=== PATIENT | female | born 1985 | race Caucasian/White ===

== ENCOUNTER 2018-07-23 19:21 | Emergency (ER) | payer BC ==
[~2018-07-23] VITALS: Ht 162.6 cm; Wt 86.2 kg
[~2018-07-23 19:21] MED LIST: CIPR500T4 PO; METR500T21 PO; ONDA8TAB9 PO; TRAM50TA2 PO
--- NOTE | 2018-07-23 19:34 | ED Cough/URI ---
General Stated Complaint: COUGH/CONGESTION Source: patient Exam Limitations: no limitations History of Present Illness Date Seen by Provider: Jul 23, 2018 Time Seen by Provider: 19:33 Initial Comments To ER with reports of cough and nasal congestion. This began Monday with sneezing, Monday she felt generally worse and today she's had a cough. Upon awakening today she noticed her lips were blue. She has a cough productive of bloody-appearing sputum and feels short of breath. She does have mild asthma. Timing/Duration: constant, getting worse Severity/Quality: productive cough Associated Symptoms: cough, shortness of breath Allergies and Home Medications Allergies Coded Allergies: codeine (Verified Allergy, Mild, 03/19/16) Home Medications Ciprofloxacin HCl 500 Mg Tablet, 500 MG PO Q12H Prescribed by: SHAUNNA TREJO on 03/20/1617 Metronidazole 500 Mg Tablet, 500 MG PO BID Prescribed by: SHAUNNA TREJO on 03/20/1617 Ondansetron 8 Mg Tab.rapdis, 8 MG PO Q6H PRN for NAUSEA Prescribed by: SHAUNNA TREJO on 03/20/1617 Prednisone 20 Mg Tab, 40 MG PO DAILY . Prescribed by: DARIN AL on 07/23/182153 Tramadol HCl 50 Mg Tablet, 50 MG PO Q4H PRN for PAIN Prescribed by: SHAUNNA TREJO on 03/20/1617 Patient Home Medication List Home Medication List Reviewed: Yes Review of Systems Review of Systems Constitutional: see HPI EENTM: see HPI Respiratory: see HPI, phlegm, short of breath Cardiovascular: no symptoms reported Genitourinary: no symptoms reported Musculoskeletal: no symptoms reported Skin: no symptoms reported Psychiatric/Neurological: No Symptoms Reported Past Dgmzmis-Pvjoau-Fojhsw Hx Patient Social History Recent Foreign Travel: No Contact w/Someone Who Travel: No Seasonal Allergies Seasonal Allergies: No Past Medical History Reproductive Disorders: No Sexually Transmitted Disease: No HIV/AIDS: No Adverse Reaction/Blood Tranf: No Family Medical History No Pertinent Family Hx Physical Exam Vital Signs - First Documented 07/23/18 19:25 Temp 98.7 Pulse 98 Resp 22 B/P (MAP) 130/85 (100) Pulse Ox 97 O2 Delivery Room Air Capillary Refill : Height: 5'4" Weight: 184lbs. oz. 83.181822uv; BMI Method:Stated General Appearance: WD/WN, no apparent distress Eyes: Bilateral Eye Normal Inspection, Bilateral Eye PERRL, Bilateral Eye EOMI HEENT: PERRL/EOMI, normal ENT inspection Neck: non-tender Respiratory: no respiratory distress, no accessory muscle use, other (wheezing left base) Cardiovascular: regular rate, rhythm Gastrointestinal: normal bowel sounds, non tender, soft Extremities: normal range of motion, non-tender, other (no unilateral leg swelling) Neurologic/Psychiatric: alert, normal mood/affect, oriented x 3 Skin: normal color, warm/dry Progress/Results/Core Measures Suspected Sepsis SIRS Temperature: Pulse: Respiratory Rate: Laboratory Tests 07/23/18 19:50: White Blood Count 11.4H Blood Pressure / Mean: Laboratory Tests 07/23/18 19:50: Platelet Count 317 Results/Orders Lab Results Laboratory Tests Test 07/23/18 19:50 Range/Units White Blood Count 11.4 H 4.3-11.0 10^3/uL Red Blood Count 4.35 4.35-5.85 10^6/uL Hemoglobin 13.4 11.5-16.0 G/DL Hematocrit 39 35-52 % Mean Corpuscular Volume 89 80-99 FL Mean Corpuscular Hemoglobin 31 25-34 PG Mean Corpuscular Hemoglobin Concent 35 32-36 G/DL Red Cell Distribution Width 13.4 10.0-14.5 % Platelet Count 317 130-400 10^3/uL Mean Platelet Volume 10.5 H 7.4-10.4 FL Neutrophils (%) (Auto) 68 42-75 % Lymphocytes (%) (Auto) 20 12-44 % Monocytes (%) (Auto) 5 0-12 % Eosinophils (%) (Auto) 8 0-10 % Basophils (%) (Auto) 0 0-10 % Neutrophils # (Auto) 7.7 1.8-7.8 X 10^3 Lymphocytes # (Auto) 2.2 1.0-4.0 X 10^3 Monocytes # (Auto) 0.5 0.0-1.0 X 10^3 Eosinophils # (Auto) 0.9 H 0.0-0.3 10^3/uL Basophils # (Auto) 0.0 0.0-0.1 10^3/uL D-Dimer 0.55 H 0.00-0.49 UG/ML Serum Test, Qualitative NEGATIVE NEGATIVE My Orders Orders - DARIN AL RELATIONS LIAISON Albuterol/Ipra Inhalation Soln (Duoneb I (07/23/18 19:45) Svn Small Volume Nebulizer (07/23/18 19:31) Chest Pa/Lat (2 View) (07/23/18 19:31) Cbc With Automated Diff (07/23/18 19:34) Fibrin Degradation Products (07/23/18 19:34) Hcg,Qualitative Serum (07/23/18 19:34) Iv Heplock-Insert (Order) (07/23/18 19:34) Ct Angio Chest W (07/23/18 20:29) Iohexol Injection (Omnipaque 350 Mg/Ml 1 (07/23/18 21:00) Ns (Ivpb) (Sodium Chloride 0.9%) (07/23/18 21:00) Rx-Albuterol Inhaler (Rx-Proair) (07/23/18 21:26) Methylprednisolone Sod Succ (Solu-Medrol (07/23/18 21:30) Medications Given in ED Current Medications Medications Dose Ordered Sig/Shantell Route Start Time Stop Time Status Last Admin Dose Admin Albuterol/ Ipratropium 3 ml ONCE ONCE INH 07/23/18 19:45 07/23/18 19:46 DC 07/23/18 19:36 3 ML Iohexol 150 ml ONCE ONCE IV 07/23/18 21:00 07/23/18 21:23 DC 07/23/18 20:53 140 ML Methylprednisolone Sodium Succinate 125 mg ONCE ONCE IVP 07/23/18 21:30 07/23/18 21:31 DC 07/23/18 21:58 125 MG Sodium Chloride 250 ml ONCE ONCE IV 07/23/18 21:00 07/23/18 21:24 DC 07/23/18 20:54 80 ML Vital Signs/I&O 07/23/18 07/23/18 07/23/18 19:25 19:25 19:36 Temp 98.7 Pulse 98 Resp 22 B/P (MAP) 130/85 (100) Pulse Ox 97 95 O2 Delivery Room Air Room Air Room Air Capillary Refill : Diagnostic Imaging Diagonstic Imaging: Xray, CT Comments NAME: LUDMILA ESPINOSA [facility] REC#: [id number] PT STATUS: REG ER : 1985 PHYSICIAN: DARIN AL APRN ADMIT DATE: 07/23/18/ER Draft Date of Exam:07/23/18 CT ANGIO CHEST W PROCEDURE: CT angiography of the chest with contrast. TECHNIQUE: Multiple contiguous axial images were obtained through the chest after uneventful bolus administration of intravenous contrast. 2D reconstructed CTA MIP acquisitions were also performed. INDICATION: Cough, congestion, elevated d-dimer. COMPARISON: None FINDINGS: No significant filling defect within the pulmonary arteries to reflect pulmonary embolism. The heart size is unremarkable. Thoracic aorta normal in contour. Mildly prominent but non-pathologically enlarged hilar lymph nodes present. EG junction unremarkable. There is no focal lobar consolidation. There is suggestion of slight peribronchial thickening, could reflect nonspecific bronchiolitis. No significant effusion. No pneumothorax. Likely changes of hepatic steatosis. Stomach is distended with retained gastric contents likely recent meal ingestion. The visualized osseous structures demonstrate no acute findings. IMPRESSION: 1. No CTA evidence for pulmonary embolism. 2. There is slightly prominent peribronchial markings as well as prominent hilar lymphadenopathy. The findings could be reflective of underlying nonspecific bronchiolitis. No lucrecia lobar consolidation. Dictated on workstation # [id number] Dict: 07/23/182108 Trans: 07/23/18 Critical access hospital2 [facility] [id number] Interpreted by: NATHAN RUDOLPH DO Electronically signed by: Departure Impression Primary Impression: Bronchitis Disposition: 01 HOME, SELF-CARE Condition: Stable Departure-Patient Inst. Decision time for Depature: 21:46 Referrals: [facility] Primary Care Physician Patient Instructions: Acute Bronchitis, Adult (DC) Add. Discharge Instructions: 1. Return to ER for any cocerns 2. Call your doctor for an appointment to be seen for recheck this week 3. Steroids as directed. INhaler 2 puffs ever 4 hours. Scripts Prednisone (Prednisone) 20 Mg Tab 40 MG PO DAILY, #6 TAB . Prov: DARIN AL APRN 07/23/18 Work/School Note: Work Release Form Date Seen in the Emergency Department: Jul 23, 2018 Return to Work: Jul 25, 2018 DARIN AL APRN Jul 23, 2018 19:34
[2018-07-23] MEDS ORDERED: RT-ALBUTEROL/IPRATROPIUM 3 ML (DUONEB) VIAL INH ONE (19:45)
[2018-07-23 19:58] LABS: BASOPHILS % (AUTO) 0 % (0-10); EOSINOPHILS # (AUTO) 0.9 10^3/uL (0.0-0.3); EOSINOPHILS % (AUTO) 8 % (0-10); HEMATOCRIT 39 % (35-52); HEMOGLOBIN 13.4 G/DL (11.5-16.0); LYMPHOCYTES # (AUTO) 2.2 X 10^3 (1.0-4.0); LYMPHOCYTES % (AUTO) 20 % (12-44); MEAN CORPUSCULAR HEMOGLOBIN 31 PG (25-34); MEAN CORPUSCULAR HGB CONC 35 G/DL (32-36); MEAN CORPUSCULAR VOLUME 89 FL (80-99); MEAN PLATELET VOLUME 10.5 FL (7.4-10.4); MONOCYTES # (AUTO) 0.5 X 10^3 (0.0-1.0); MONOCYTES % (AUTO) 5 % (0-12); NEUTROPHILS # (AUTO) 7.7 X 10^3 (1.8-7.8); NEUTROPHILS % (AUTO) 68 % (42-75); PLATELET COUNT 317 10^3/uL (130-400); RED BLOOD COUNT 4.35 10^6/uL (4.35-5.85); RED CELL DISTRIBUTION WIDTH 13.4 % (10.0-14.5); WHITE BLOOD COUNT 11.4 10^3/uL (4.3-11.0)
--- NOTE | 2018-07-23 20:09 | Diagnostic Imaging Report ---
INDICATION: Chest tightness, cough, congestion.. TECHNIQUE: Two view chest 8:19 PM CORRELATION STUDY: None FINDINGS: The heart size, mediastinal configuration and pulmonary vasculature are within normal limits. The lungs are clear with no consolidating infiltrate. There is no significant pleural effusion or pneumothorax. Visualized osseous structures are unremarkable. IMPRESSION: 1. No radiographic evidence for acute abnormality of the chest. Dictated by: Dictated on workstation # [id number]
[2018-07-23] MEDS ORDERED: IOHEXOL 350 MG/ML 150 ML (OMNIPAQUE 350) VIAL IV ONE (21:00)
[2018-07-23] MEDS ORDERED: NS 250 ML (IVPB) BAG IV ONE (21:00)
[2018-07-23] MEDS ORDERED: RX-ALBUTEROL INHALER (PROAIR) 8 GM IH STA (21:26)
[2018-07-23] MEDS ORDERED: methylPREDNISolone 125 MG (Solu-MEDROL) VIAL IVP ONE (21:30)
--- NOTE | 2018-07-23 21:33 | Diagnostic Imaging Report ---
PROCEDURE: CT angiography of the chest with contrast. TECHNIQUE: Multiple contiguous axial images were obtained through the chest after uneventful bolus administration of intravenous contrast. 2D reconstructed CTA MIP acquisitions were also performed. INDICATION: Cough, congestion, elevated d-dimer. COMPARISON: None FINDINGS: No significant filling defect within the pulmonary arteries to reflect pulmonary embolism. The heart size is unremarkable. Thoracic aorta normal in contour. Mildly prominent but non-pathologically enlarged hilar lymph nodes present. EG junction unremarkable. There is no focal lobar consolidation. There is suggestion of slight peribronchial thickening, could reflect nonspecific bronchiolitis. No significant effusion. No pneumothorax. Likely changes of hepatic steatosis. Stomach is distended with retained gastric contents likely recent meal ingestion. The visualized osseous structures demonstrate no acute findings. IMPRESSION: 1. No CTA evidence for pulmonary embolism. 2. There is slightly prominent peribronchial markings as well as prominent hilar lymphadenopathy. The findings could be reflective of underlying nonspecific bronchiolitis. No lucrecia lobar consolidation. Dictated by: Dictated on workstation # [id number]
[2018-07-23] MEDS ORDERED: PRD20T PO ×2 (21:47→21:54)
[2018-07-23 22:04] VITALS: BP 128/86
== END 2018-07-23 22:07 | disposition home or self-care (01) ==
LOC: EDUNIT# 19:21 → ER 19:22
DX: J40 Bronchitis, not specified as acute or chronic (principal); J45.909 Unspecified asthma, uncomplicated; Z88.5 Allergy status to narcotic agent; Z79.52 Long term (current) use of systemic steroids
CPT/HCPCS: 36415; 71046; 71275; 84703; 85025; 85379; 94640

== ENCOUNTER 2019-08-22 20:07 | Emergency (ER) | payer OTHER ==
[~2019-08-22] VITALS: Ht 162.6 cm; Wt 87.1 kg
[~2019-08-22 20:07] MED LIST changes: +METR-145 PO; -METR500T21 PO; +PRD20T PO
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
[2019-08-22] MEDS ORDERED: RX-ONDANSETRON 4 MG ODT (ZOFRAN) PPK #4 PO STA (22:51)
[2019-08-22] MEDS ORDERED: ONDA4TAB11 PO (22:55)
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
[2019-08-22] MEDS ORDERED: ONDANSETRON 4 MG (ZOFRAN) ORAL DISSOLVE TAB PO ONE (23:00)
[2019-08-22 23:10] VITALS: BP 171/72
== END 2019-08-22 23:10 | disposition home or self-care (01) ==
LOC: EDUNIT# 20:07 → ER 20:08
DX: S09.90XA Unspecified injury of head, initial encounter (principal); I10 Essential (primary) hypertension; M06.9 Rheumatoid arthritis, unspecified; F17.210 Nicotine dependence, cigarettes, uncomplicated; Z88.5 Allergy status to narcotic agent; Z91.040 Latex allergy status; Z79.52 Long term (current) use of systemic steroids; W22.8XXA Striking against or struck by other objects, initial encounter
CPT/HCPCS: 70450

== ENCOUNTER 2022-06-08 13:36 | Emergency (ER) | payer OTHER ==
[~2022-06-08 13:36] MED LIST changes: -CIPR500T4 PO; +CIPR500T5 PO; +ONDA4TAB11 PO; -TRAM50TA2 PO; +TRM50T PO
[2022-06-08 14:00] LABS: BASOPHILS # (AUTO) 0.1 10^3/uL (0.0-0.1); BASOPHILS % (AUTO) 1 % (0-10); EOSINOPHILS # (AUTO) 0.5 10^3/uL (0.0-0.3); EOSINOPHILS % (AUTO) 8 % (0-10); HEMATOCRIT 39 % (35-52); HEMOGLOBIN 13.7 g/dL (11.5-16.0); LYMPHOCYTES # (AUTO) 1.6 10^3/uL (1.0-4.0); LYMPHOCYTES % (AUTO) 27 % (12-44); MEAN CORPUSCULAR HEMOGLOBIN 31 pg (25-34); MEAN CORPUSCULAR HGB CONC 35 g/dL (32-36); MEAN CORPUSCULAR VOLUME 89 fL (80-99); MEAN PLATELET VOLUME 9.8 fL (9.0-12.2); MONOCYTES # (AUTO) 0.4 10^3/uL (0.0-1.0); MONOCYTES % (AUTO) 6 % (0-12); NEUTROPHILS # (AUTO) 3.6 10^3/uL (1.8-7.8); NEUTROPHILS % (AUTO) 59 % (42-75); PLATELET COUNT 343 10^3/uL (130-400); WHITE BLOOD COUNT 6.1 10^3/uL (4.3-11.0)
[2022-06-08] MEDS ORDERED: KETOROLAC 30 MG/ML VIAL IVP STA (14:06)
[2022-06-08] MEDS ORDERED: ORPHENADRINE 60 MG/2 ML (NORFLEX) AMP (ED ONLY) IV STA (14:06)
[2022-06-08 14:10] LABS: ALBUMIN 4.2 GM/DL (3.2-4.5); POTASSIUM 3.7 MMOL/L (3.6-5.0)
[2022-06-08 14:12] LABS: CALCIUM 9.2 MG/DL (8.5-10.1); PROTHROMBIN TIME PATIENT 13.4 SEC (12.2-14.7)
--- NOTE | 2022-06-08 14:14 | ED Chest Pain ---
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 Source: patient Exam Limitations: no limitations History of Present Illness Date Seen by Provider: Jun 08, 2022 Time Seen by Provider: 14:00 Initial Comments Here with report of chest pain that is sharp and constant and started last night after doing a mask fit test. She states that she has been having support p pinedaBirthday Slam and we have did not want to do the test and passed out twice during that. She states pain has been worse ever since. 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 Reports that its on her left lateral aspect of her chest wall that goes to her axilla and then to her left upper arm. Also radiates up to her neck. Denies nausea or vomiting. Denies recent illness. She is vaccinated for COVID. She did have a heart cath 3 to 5 years ago that was negative. Does have strong family history of heart disease in her mother just recently had quadruple bypass. Timing/Duration: 12-24 hours Severity/Quality: moderate, severe, sharp Location: other (Left lateral chest wall) Radiation: arms (Left), neck Prior CP/Workup: cardiac cath ASA po BARK GRINDER: Yes (Daily) NTG SL BARK GRINDER: No Associated Symptoms: No abdominal pain, No back pain, No dizziness, No fever/chills, No nausea/vomiting; shortness of breath; No weakness Allergies and Home Medications Allergies Coded Allergies: codeine (Verified Allergy, Mild, 03/19/16) latex (Verified Allergy, Unknown, 08/22/19) Patient Home Medication List Home Medication List Reviewed: Yes Ciprofloxacin HCl (Ciprofloxacin HCl) 500 Mg Tablet, 500 MG PO Q12H Prescribed by: SHAUNNA TREJO on 03/20/1617 Metronidazole (Metronidazole) 500 Mg Tablet, 500 MG PO BID Prescribed by: SHAUNNA TREJO on 03/20/1617 Ondansetron (Zofran Odt) 8 Mg Tab.rapdis, 8 MG PO Q6H PRN for NAUSEA Prescribed by: SHAUNNA TREJO on 03/20/1617 Ondansetron (Ondansetron Odt) 4 Mg Tab.rapdis, 4 MG PO Q4H Prescribed by: AHSAN GEIGER on 08/22/192254 Prednisone (Prednisone) 20 Mg Tab, 40 MG PO DAILY Prescribed by: DARIN AL on 07/23/182153 Tramadol HCl (Tramadol HCl) 50 Mg Tablet, 50 MG PO Q4H PRN for PAIN Prescribed by: SHAUNNA TREJO on 03/20/16 0018 Review of Systems Review of Systems Constitutional: see HPI; No chills, No fever EENTM: No Nose Congestion, No Throat Pain Respiratory: Denies Cough; Shortness of Air Cardiovascular: Chest Pain; Denies Edema Gastrointestinal: Denies Diarrhea, Denies Vomiting Genitourinary: No Symptoms Reported Musculoskeletal: No back pain; muscle pain Skin: No change in color, No lesions Psychiatric/Neurological: No Symptoms Reported All Other Systems Reviewed Negative Unless Noted: Yes Past Rrxnesh-Lkydhy-Xylwdd Hx Patient Social History Tobacco Use?: No Use of E-Cig and/or Vaping dev: No Substance use?: No Alcohol Use?: No Pt feels they are or have been: No Immunizations Up To Date Influenza Vaccine Up-to-Date: No; Not Current First/Initial COVID19 Vaccinat: 2020 Second COVID19 Vaccination Colby: 2020 Seasonal Allergies Seasonal Allergies: No Past Medical History Surgery/Hospitalization HX: SVT, EPILEPSY Surgeries: Yes (CARDIAC CATH--NO INTERVENTION) Cardiac Respiratory: No Cardiac: Yes (SVT) Hypertension, Irregular Heartbeat Neurological: No Last Menstrual Period: Jun 08, 2022 Reproductive Disorders: No Female Reproductive Disorders: Denies Sexually Transmitted Disease: No HIV/AIDS: No Genitourinary: No Gastrointestinal: No Musculoskeletal: Yes (RA--NO MEDICATIONS) Rheumatoid Arthritis Endocrine: No HEENT: Yes (RIGHT ORBITAL FRACTURE--NO SURGERY) Loss of Vision: Denies Hearing Impairment: Denies Cancer: No Psychosocial: No Integumentary: No Blood Disorders: No Adverse Reaction/Blood Tranf: No Family Medical History Reviewed Nursing Family Hx No Pertinent Family Hx Physical Exam Vital Signs Vital Signs - First Documented 06/08/22 06/08/22 13:49 14:05 Temp 37.0 Pulse 77 Resp 18 B/P (MAP) 130/90 (103) O2 Delivery Room Air Capillary Refill : Height, Weight, BMI Height: 5'4.00" Weight: 190lbs. oz. 86.130475tx; 26.00 BMI Method:Stated General Appearance: WD/WN, Mild Distress HEENT: PERRL/EOMI, Pharynx Normal Neck: Non Tender, Supple Respiratory: Lungs Clear, Normal Breath Sounds Cardiovascular: Regular Rate, Rhythm, No Murmur Gastrointestinal: Non Tender, Soft Extremity: Normal Range of Motion, Non Tender, No Calf Tenderness Neurologic/Psychiatric: Alert, Oriented x3 Skin: Normal Color, Warm/Dry Progress/Results/Core Measures Results/Orders Lab Results Laboratory Tests Test 06/08/22 13:54 06/08/22 14:59 06/08/22 16:25 Range/Units White Blood Count 6.1 4.3-11.0 10^3/uL Red Blood Count 4.45 3.80-5.11 10^6/uL Hemoglobin 13.7 11.5-16.0 g/dL Hematocrit 39 35-52 % Mean Corpuscular Volume 89 80-99 fL Mean Corpuscular Hemoglobin 31 25-34 pg Mean Corpuscular Hemoglobin Concent 35 32-36 g/dL Red Cell Distribution Width 12.3 10.0-14.5 % Platelet Count 343 130-400 10^3/uL Mean Platelet Volume 9.8 9.0-12.2 fL Immature Granulocyte % (Auto) 0 % Neutrophils (%) (Auto) 59 42-75 % Lymphocytes (%) (Auto) 27 12-44 % Monocytes (%) (Auto) 6 0-12 % Eosinophils (%) (Auto) 8 0-10 % Basophils (%) (Auto) 1 0-10 % Neutrophils # (Auto) 3.6 1.8-7.8 10^3/uL Lymphocytes # (Auto) 1.6 1.0-4.0 10^3/uL Monocytes # (Auto) 0.4 0.0-1.0 10^3/uL Eosinophils # (Auto) 0.5 H 0.0-0.3 10^3/uL Basophils # (Auto) 0.1 0.0-0.1 10^3/uL Immature Granulocyte # (Auto) 0.0 0.0-0.1 10^3/uL Prothrombin Time 13.4 12.2-14.7 SEC INR Comment 1.0 0.8-1.4 Activated Partial Thromboplast Time 28 24-35 SEC D-Dimer < 0.27 0.00-0.49 UG/ML Sodium Level 142 135-145 MMOL/L Potassium Level 3.7 3.6-5.0 MMOL/L Chloride Level 111 H 98-107 MMOL/L Carbon Dioxide Level 22 21-32 MMOL/L Anion Gap 9 5-14 MMOL/L Blood Urea Nitrogen 8 7-18 MG/DL Creatinine 0.87 0.60-1.30 MG/DL Estimat Glomerular Filtration Rate 89 BUN/Creatinine Ratio 9 Glucose Level 115 H 70-105 MG/DL Calcium Level 9.2 8.5-10.1 MG/DL Corrected Calcium 9.0 8.5-10.1 MG/DL Magnesium Level 2.1 1.6-2.4 MG/DL Total Bilirubin 0.2 0.1-1.0 MG/DL Aspartate Amino Transf (AST/SGOT) 10 5-34 U/L Alanine Aminotransferase (ALT/SGPT) 8 0-55 U/L Alkaline Phosphatase 60 40-136 U/L Creatine Kinase MB 1.4 <6.6 NG/ML Myoglobin 36.6 10.0-92.0 NG/ML Troponin I < 0.028 < 0.028 <0.028 NG/ML B-Type Natriuretic Peptide < 10.0 <100.0 PG/ML Total Protein 7.0 6.4-8.2 GM/DL Albumin 4.2 3.2-4.5 GM/DL Amylase Level 61 25-125 U/L TSH [place] Testing 0.93 0.35-4.94 UIU/ML Urine Color YELLOW Urine Clarity CLEAR Urine pH 7.0 5-9 Urine Specific P[place] 1.010 L 1.016-1.022 Urine Protein NEGATIVE NEGATIVE Urine Glucose (UA) NEGATIVE NEGATIVE Urine Ketones NEGATIVE NEGATIVE Urine Nitrite NEGATIVE NEGATIVE Urine Bilirubin NEGATIVE NEGATIVE Urine Urobilinogen 0.2 < = 1.0 MG/DL Urine Leukocyte Esterase NEGATIVE NEGATIVE Urine RBC (Auto) TRACE-I H NEGATIVE Urine RBC NONE /HPF Urine WBC RARE /HPF Urine Squamous Epithelial Cells 0-2 /HPF Urine Crystals NONE /LPF Urine Bacteria FEW H /HPF Urine Casts NONE /LPF Urine Mucus NEGATIVE /LPF Urine Culture Indicated YES My Orders Orders - ADIS BALDWIN MD Ketorolac Injection (Toradol Injection) (06/08/22 14:06) Orphenadrine Inj (Ed Only) (Norflex Inje (06/08/22 14:06) Thyroid Analyzer (06/08/22 14:51) Troponin I Wells (06/08/22 15:55) Ua Culture If Indicated (06/08/22 14:59) Lactated Ringers (Lr 1000 Ml Iv Solution (06/08/22 15:00) Urine Culture (06/08/22 14:59) Medications Given in ED Current Medications Medications Dose Ordered Sig/Shantell Route Start Time Stop Time Status Last Admin Dose Admin Lactated Ringer's 1,000 ml @ 0 mls/hr Q0M ONCE IV 06/08/22 15:00 06/08/22 15:01 DC 06/08/22 15:17 1,000 MLS/HR Vital Signs/I&O 06/08/22 06/08/22 13:49 14:05 Temp 37.0 Pulse 77 Resp 18 B/P (MAP) 130/90 (103) O2 Delivery Room Air Blood Pressure Mean: 103 Progress Progress Note : Progress Note Seen and evaluated. IV, labs, EKG and chest x-ray ordered. Toradol 30 mg IV and Norflex 60 mg IV ordered. No need for ASA as patient is taking that daily already. Monitor patient. 1714: I have repeated the troponin as well as added thyroid study. Both were negative. Overall she is doing a little better now. She is itching a little bit she thinks that she may had some reaction although I do not see any hives or rash or any other concerns. She will take some Benadryl when she gets home if she is still itching. We discussed mqvc-cza-kfkoemh therapy including Tylenol and ibuprofen as needed. She will follow-up with her doctor. Her mother is here currently and will help with follow-up as well. Discharged home with return precautions. Patient verbalized understanding instructions and agreement with plan. Initial ECG Impression Date: Jun 08, 2022 Initial ECG Impression Time: 14:05 Initial ECG Rate: 63 Initial ECG Rhythm: Normal Sinus Initial ECG Comparisson: No Previous ECG Available Comment Normal sinus rhythm with normal axis. No evidence of ST elevation [place]. No previous available for comparison. Interpreted by me. Diagnostic Imaging Diagonstic Imaging: Xray Plain Films/CT/US/NM/MRI: chest Comments [facility]. [place], [place] NAME: LUDMILA ESPINOSA [facility] REC#: [id number] PT STATUS: REG ER : 1985 PHYSICIAN: ROCIO HARRISON APRN ADMIT DATE: 06/08/22/ER Draft Date of Exam:06/08/22 CHEST 1 VIEW, AP/PA ONLY INDICATION: Chest pain. COMPARISON: 07/23/2018. FINDINGS: Single frontal view of the chest demonstrates normal heart size and pulmonary vascularity. The lungs are well aerated and clear. No large pleural effusion or pneumothorax is seen. The visualized osseous structures show no acute abnormalities. IMPRESSION: 1. No acute cardiopulmonary process. Dictated on workstation # [id number] Dict: 06/08/22 1416 Trans: 06/08/22 1417 [id number] Interpreted by: VINCENT MACK MD Electronically signed by: Departure Impression Primary Impression: Chest pain Qualified Codes: R07.9 - Chest pain, unspecified Additional Impression: Syncope Qualified Codes: R55 - Syncope and collapse Disposition: 01 HOME, SELF-CARE Condition: Stable Departure-Patient Inst. Decision time for Depature: 17:16 Referrals: [facility] [place] Primary Care Physician Patient Instructions: Chest Pain, Adult ED Add. Discharge Instructions: All discharge instructions reviewed with patient and/or family. Voiced understa nding. Continue home medications as previously prescribed. Follow-up with your doctor within the next week for recheck and further evaluation and to discuss both the passing out and chest pain as well as discussing your seizure disorder. You may take Benadryl/diphenhydramine 25 mg every 6 hours as needed for itching. You may take Tylenol/acetaminophen 1000 mg every 6-8 hours as needed for pain. You may take ibuprofen 600 mg every 8 hours as needed for pain. Return for worse pain, fever, vomiting, weakness, breathing problems or other concerns as needed. ADIS BALDWIN MD Jun 08, 2022 14:14
[2022-06-08 14:15] LABS: BILIRUBIN,TOTAL 0.2 MG/DL (0.1-1.0)
[2022-06-08 14:16] LABS: CREATININE SERUM 0.87 MG/DL (0.60-1.30)
--- NOTE | 2022-06-08 14:18 | Diagnostic Imaging Report ---
INDICATION: Chest pain. COMPARISON: 07/23/2018. FINDINGS: Single frontal view of the chest demonstrates normal heart size and pulmonary vascularity. The lungs are well aerated and clear. No large pleural effusion or pneumothorax is seen. The visualized osseous structures show no acute abnormalities. IMPRESSION: 1. No acute cardiopulmonary process. Dictated by: Dictated on workstation # [id number]
[2022-06-08 14:19] LABS: MAGNESIUM 2.1 MG/DL (1.6-2.4)
[2022-06-08 14:26] LABS: CREATINE KINASE MB 1.4 NG/ML (<6.6)
[2022-06-08] MEDS ORDERED: LACTATED RINGERS 1,000 ML IV ONE (15:00)
[2022-06-08 15:12] LABS: BILIRUBIN,URINE NEGATIVE (NEGATIVE); CLARITY,URINE CLEAR; COLOR,URINE YELLOW; GLUCOSE, URINE (UA) NEGATIVE (NEGATIVE); KETONES,URINE NEGATIVE (NEGATIVE); LEUKOCYTE ESTERASE ,URINE NEGATIVE (NEGATIVE); NITRITE,URINE NEGATIVE (NEGATIVE); PROTEIN,URINE NEGATIVE (NEGATIVE)
[2022-06-08 15:34] LABS: BACTERIA,URINE FEW /HPF; SQUAMOUS EPITHELIAL CELL,UR 0-2 /HPF; WBC,URINE RARE /HPF
[2022-06-08 17:30] VITALS: BP 117/61
== END 2022-06-08 17:31 | disposition home or self-care (01) ==
LOC: EDUNIT# 13:36 → ER 13:37
DX: R07.89 Other chest pain (principal); R55 Syncope and collapse; Z82.49 Family history of ischemic heart disease and other diseases of the circulatory system; Z98.61 Coronary angioplasty status; Z91.040 Latex allergy status
CPT/HCPCS: 36415; 71045; 80053; 81000; 82150; 82553; 83735; 83874; 83880; 84443; 84484; 85025; 85379; 85610; 85730; 87088; 93005; 93041

== ENCOUNTER → 2022-11-05 | Outpatient (CLI) | payer OTHER | LOC: LAB 15:52 | PROVIDERS: ATTEND Nurse Practitioner Family | DX: N64.59 Other signs and symptoms in breast (principal) | CPT/HCPCS: 36415; 84703 ==

== ENCOUNTER 2023-03-20 13:59 | Emergency (ER) | payer OTHER ==
--- NOTE | 2023-03-20 14:59 | ED Headache ---
General Chief Complaint: Head/Cervical Problems Stated Complaint: SEIZURE | NAUSEA | Nursing Triage Note: PT AMB TO ED BY POV [place] C/O GRAFF, DIZZINESS, NAUSEA. PT REPORTS SHE WOKE UP WITH DIZZINESS, GRAFF, AND NAUSEA THIS MORNING, BUT HAS BEEN HAVING THESE "EPISODES" AND "SEIZURES" FOR AWHILE. PT REPORTS SHE WILL HAVE SEVERE GRAFF THAT LEADS TO DIZZINESS, NAUSEA AND "SEIZURE." REPORTS SHE IS ALERT DURING THE SEIZURE, NO LOC, BUT HAS UNCONTROLLABLE SHAKING. PT DOES HAVE HX EPILEPTIC SEIZURES AND TAKES 100MG TOPIRAMATE BID. REPORTS SHE HAS AN APPOINTMENT WITH NEW NEUROLOGIST AT ON . Source: patient Exam Limitations: no limitations History of Present Illness Date Seen by Provider: Mar 20, 2023 Time Seen by Provider: 14:55 Initial Comments Patient is a 37-year-old female with a history of seizures who presents ED for potential seizure. She states around 1230 she was getting ready for work. Started developing a diffuse headache, nausea and dizzy. She states she started having shaking. She had no loss of consciousness. The shaking has improved but still does have a headache with nausea. Sensation of wanting to pass out. She has had these intermittent episodes for the past 3 years. Was diagnosed by a neurologist in [place] with seizures 3 years ago was placed on Topamax 100 mg twice daily. She states she did have a similar episode last week where she started having blurry vision her whole body went numb with shaking. She did have a headache that seems to start her symptoms. She states sometimes with her headaches they may last 3 to 4 days with feeling nausea and having intermittent shakes. She is scheduled follow-up with neurologist at on . She did have loss of consciousness with these episodes in the past but nothing recently. She denies of any chest pain, cough, shortness of breath, abdominal pain, vomiting, diarrhea or fever. She does have some neck pain with her symptoms. Allergies and Home Medications Allergies Coded Allergies: codeine (Verified Allergy, Mild, 03/19/16) latex (Verified Allergy, Unknown, 08/22/19) Patient Home Medication List Home Medication List Reviewed: Yes Ciprofloxacin HCl (Ciprofloxacin HCl) 500 Mg Tablet, 500 MG PO Q12H Prescribed by: SHAUNNA TREJO on 03/20/16 0018 Metronidazole (Metronidazole) 500 Mg Tablet, 500 MG PO BID Prescribed by: SHAUNNA TREJO on 03/20/1617 Ondansetron (Zofran Odt) 8 Mg Tab.rapdis, 8 MG PO Q6H PRN for NAUSEA Prescribed by: SHAUNNA TREJO on 03/20/1617 Ondansetron (Ondansetron Odt) 4 Mg Tab.rapdis, 4 MG PO Q4H Prescribed by: AHSAN GEIGER on 08/22/192254 Prednisone (Prednisone) 20 Mg Tab, 40 MG PO DAILY Prescribed by: DARIN AL on 07/23/182153 Tramadol HCl (Tramadol HCl) 50 Mg Tablet, 50 MG PO Q4H PRN for PAIN Prescribed by: SHAUNNA TREJO on 03/20/1617 Review of Systems Review of Systems Constitutional: No chills, No diaphoresis, No malaise, No weakness Eyes: Denies Blindness; Blurred Vision Ears, Nose, Mouth, Throat: denies ear pain, denies ear discharge Respiratory: No cough, No dyspnea on exertion Cardiovascular: No chest pain Gastrointestinal: No abdominal pain, No diarrhea; nausea; No vomiting Genitourinary: No decreased output, No discharge, No dysuria, No frequency Musculoskeletal: No back pain, No joint pain; muscle pain, muscle stiffness Skin: No change in color Psychiatric/Neurological: Headache, Numbness, Tingling, Other (Shaking) All Other Systems Reviewed Negative Unless Noted: Yes Past Iyyqheo-Ddxksc-Ggfbuw Hx Patient Social History Tobacco Use?: No Use of E-Cig and/or Vaping dev: Yes E-Cig or Vaping type used: Nicotine Use of E-Cig and/or Vaping Olegario: Current Everyday User Substance use?: No Alcohol Use?: No Pt feels they are or have been: No Immunizations Up To Date Influenza Vaccine Up-to-Date: No; Not Current First/Initial COVID19 Vaccinat: 2020 Second COVID19 Vaccination Colby: 2020 Third COVID19 Vaccination Date: 2020 Seasonal Allergies Seasonal Allergies: No Past Medical History Surgery/Hospitalization HX: SVT, EPILEPSY, HTN Surgeries: Yes (CARDIAC CATH--NO INTERVENTION) Cardiac Respiratory: No Cardiac: Yes (SVT) Hypertension, Irregular Heartbeat Neurological: No Reproductive Disorders: No Female Reproductive Disorders: Denies Sexually Transmitted Disease: No HIV/AIDS: No Genitourinary: No Gastrointestinal: No Musculoskeletal: Yes (RA--NO MEDICATIONS) Rheumatoid Arthritis Endocrine: No HEENT: Yes (RIGHT ORBITAL FRACTURE--NO SURGERY) Loss of Vision: Denies Hearing Impairment: Denies Cancer: No Psychosocial: No Integumentary: No Blood Disorders: No Adverse Reaction/Blood Tranf: No Family Medical History No Pertinent Family Hx Physical Exam Vital Signs Vital Signs - First Documented 03/20/23 14:28 Temp 36.2 Pulse 78 Resp 16 B/P (MAP) 135/93 (107) Pulse Ox 100 O2 Delivery Room Air Capillary Refill : Less Than 3 Seconds Height, Weight, BMI Height: 5'4.00" Weight: 190lbs. oz. 86.354439pk; 26.00 BMI Method:Stated General Appearance: WD/WN, no apparent distress HEENT: PERRL/EOMI, normal ENT inspection, TMs normal, pharynx normal Neck: non-tender, full range of motion Cardiovascular: regular rate, rhythm, no edema, no gallop, no JVD Respiratory: chest non-tender, lungs clear, normal breath sounds, no respiratory distress, no accessory muscle use Gastrointestinal: normal bowel sounds, non tender, soft, no organomegaly Back: normal inspection, no CVA tenderness, no vertebral tenderness Extremities: normal range of motion, non-tender, normal inspection, no pedal edema Psychiatric: alert, oriented x 3 Crainal Nerves: normal hearing, normal speech, PERRL Coordination/Gait: normal finger to nose Motor/Sensory: no motor deficit, no sensory deficit Skin: normal color, warm/dry Progress/Results/Core Measures Results/Orders Lab Results Laboratory Tests Test 03/20/23 14:56 03/20/23 15:00 Range/Units White Blood Count 7.6 4.3-11.0 10^3/uL Red Blood Count 4.31 3.80-5.11 10^6/uL Hemoglobin 13.4 11.5-16.0 g/dL Hematocrit 38 35-52 % Mean Corpuscular Volume 89 80-99 fL Mean Corpuscular Hemoglobin 31 25-34 pg Mean Corpuscular Hemoglobin Concent 35 32-36 g/dL Red Cell Distribution Width 12.5 10.0-14.5 % Platelet Count 315 130-400 10^3/uL Mean Platelet Volume 10.2 9.0-12.2 fL Immature Granulocyte % (Auto) 0 % Neutrophils (%) (Auto) 66 42-75 % Lymphocytes (%) (Auto) 23 12-44 % Monocytes (%) (Auto) 5 0-12 % Eosinophils (%) (Auto) 5 0-10 % Basophils (%) (Auto) 1 0-10 % Neutrophils # (Auto) 5.1 1.8-7.8 10^3/uL Lymphocytes # (Auto) 1.8 1.0-4.0 10^3/uL Monocytes # (Auto) 0.4 0.0-1.0 10^3/uL Eosinophils # (Auto) 0.4 H 0.0-0.3 10^3/uL Basophils # (Auto) 0.0 0.0-0.1 10^3/uL Immature Granulocyte # (Auto) 0.0 0.0-0.1 10^3/uL Sodium Level 139 135-145 MMOL/L Potassium Level 3.6 3.6-5.0 MMOL/L Chloride Level 112 H 98-107 MMOL/L Carbon Dioxide Level 22 21-32 MMOL/L Anion Gap 5 5-14 MMOL/L Blood Urea Nitrogen 8 7-18 MG/DL Creatinine 0.87 0.60-1.30 MG/DL Estimat Glomerular Filtration Rate 88 BUN/Creatinine Ratio 9 Glucose Level 119 H 70-105 MG/DL Calcium Level 9.4 8.5-10.1 MG/DL Corrected Calcium 9.4 8.5-10.1 MG/DL Total Bilirubin 0.1 0.1-1.0 MG/DL Aspartate Amino Transf (AST/SGOT) 10 5-34 U/L Alanine Aminotransferase (ALT/SGPT) 10 0-55 U/L Alkaline Phosphatase 57 40-136 U/L Total Protein 6.6 6.4-8.2 GM/DL Albumin 4.0 3.2-4.5 GM/DL Urine Color YELLOW Urine Clarity CLEAR Urine pH 7.0 5-9 Urine Specific [place] 1.010 L 1.016-1.022 Urine Protein NEGATIVE NEGATIVE Urine Glucose (UA) NEGATIVE NEGATIVE Urine Ketones NEGATIVE NEGATIVE Urine Nitrite NEGATIVE NEGATIVE Urine Bilirubin NEGATIVE NEGATIVE Urine Urobilinogen 0.2 < = 1.0 MG/DL Urine Leukocyte Esterase NEGATIVE NEGATIVE Urine RBC (Auto) NEGATIVE NEGATIVE Urine RBC NONE /HPF Urine WBC NONE /HPF Urine Squamous Epithelial Cells RARE /HPF Urine Crystals NONE /LPF Urine Bacteria NEGATIVE /HPF Urine Casts NONE /LPF Urine Mucus NEGATIVE /LPF Urine Culture Indicated NO Urine Test NEGATIVE NEGATIVE My Orders Orders - BLU MARINO Ua Culture If Indicated (03/20/23 14:52) Hcg,Qualitative Urine (03/20/23 14:52) Ct Head Wo (03/20/23 14:52) Cbc With Automated Diff (03/20/23 14:52) Comprehensive Metabolic Panel (03/20/23 14:52) Ketorolac Injection (Toradol Injection) (03/20/23 15:00) Diphenhydramine Injection (Benadryl Inje (03/20/23 15:00) Prochlorperazine Injection (Compazine In (03/20/23 15:00) Medications Given in ED Current Medications Medications Dose Ordered Sig/Shantell Route Start Time Stop Time Status Last Admin Dose Admin Diphenhydramine HCl 25 mg ONCE ONCE IVP 03/20/23 15:00 03/20/23 15:01 DC 03/20/23 15:25 25 MG Ketorolac Tromethamine 30 mg ONCE ONCE IVP 03/20/23 15:00 03/20/23 15:01 DC 03/20/23 15:25 30 MG Prochlorperazine Edisylate 10 mg ONCE ONCE IV 03/20/23 15:00 03/20/23 15:01 DC 03/20/23 15:25 10 MG Vital Signs/I&O 03/20/23 03/20/23 14:28 16:28 Temp 36.2 Pulse 78 67 Resp 16 B/P (MAP) 135/93 (107) 105/67 Pulse Ox 100 98 O2 Delivery Room Air Room Air Blood Pressure Mean: 107 Departure Communication (PCP) Reviewed previous ER visits, H&P, lab testing. History of seizures. Currently on Topirmate 100 mg twice daily. Scheduled follow-up with neurologist at on . Diagnosed with seizures 3 years ago. Seizure last week but she describes her seizures as "shaking" and aware of her shake. Predominantly follows having a headache with nausea and dizziness. She believes her symptoms are secondary to migraines. She reports head pain today that developed into nausea, dizziness and shaking. Denies worst headache of her life. She has no focal neural deficits or body pains or numbness and tingling at this time. She does feel nauseous with dizziness. [place] like she was going to pass out. CT scan head, general lab work with migraine cocktail. Seizure precautions. She denies convulsions or postictal state with her seizures in the past. She states she has had loss of consciousness previously but none with her seizures recently. NIH is 0. CT scan head negative for acute abnormality. CBC, CMP urinalysis was grossly unremarkable. She received migraine cocktail of Compazine, Toradol and Benadryl with near resolution of her symptoms. Seizure versus migraine. As the patient is currently asymptomatic feeling much better patient will be discharged with strict return precautions such as worsening symptoms, focal neural deficits. If any worsening symptoms to return back to ED for further evaluation. Follow-up your PCP in2 to 3 days for reevaluation. Continue with your Toprimate. No seizure-like activity during her stay. Return if any worsening symptoms. Impression Primary Impression: Headache Disposition: HOME, SELF-CARE Condition: Stable Departure-Patient Inst. Decision time for Depature: 16:20 Referrals: [facility] [place] (PCP/Family) Primary Care Physician Patient Instructions: Headache, Adult (DC) Add. Discharge Instructions: Recommend follow-up your neurologist on for further evaluation. If any worsening symptoms return back to ED All discharge instructions reviewed with patient and/or family. Voiced understanding. BLU MARINO Mar 20, 2023 14:59
[2023-03-20] MEDS ORDERED: KETOROLAC 30 MG/ML VIAL IVP ONE (15:00)
[2023-03-20] MEDS ORDERED: diphenhydrAMINE 50 MG/ML INJ (BENADRYL) IVP ONE (15:00)
[2023-03-20] MEDS ORDERED: PROCHLORPERAZINE 10 MG/2ML INJ (COMPAZINE) IV ONE (15:00)
[2023-03-20 15:02] LABS: BASOPHILS % (AUTO) 1 % (0-10); EOSINOPHILS # (AUTO) 0.4 10^3/uL (0.0-0.3); EOSINOPHILS % (AUTO) 5 % (0-10); HEMATOCRIT 38 % (35-52); HEMOGLOBIN 13.4 g/dL (11.5-16.0); LYMPHOCYTES # (AUTO) 1.8 10^3/uL (1.0-4.0); LYMPHOCYTES % (AUTO) 23 % (12-44); MEAN CORPUSCULAR HEMOGLOBIN 31 pg (25-34); MEAN CORPUSCULAR HGB CONC 35 g/dL (32-36); MEAN CORPUSCULAR VOLUME 89 fL (80-99); MEAN PLATELET VOLUME 10.2 fL (9.0-12.2); MONOCYTES # (AUTO) 0.4 10^3/uL (0.0-1.0); MONOCYTES % (AUTO) 5 % (0-12); NEUTROPHILS # (AUTO) 5.1 10^3/uL (1.8-7.8); NEUTROPHILS % (AUTO) 66 % (42-75); PLATELET COUNT 315 10^3/uL (130-400); WHITE BLOOD COUNT 7.6 10^3/uL (4.3-11.0)
[2023-03-20 15:11] LABS: BILIRUBIN,URINE NEGATIVE (NEGATIVE); CLARITY,URINE CLEAR; COLOR,URINE YELLOW; GLUCOSE, URINE (UA) NEGATIVE (NEGATIVE); KETONES,URINE NEGATIVE (NEGATIVE); LEUKOCYTE ESTERASE ,URINE NEGATIVE (NEGATIVE); NITRITE,URINE NEGATIVE (NEGATIVE); PROTEIN,URINE NEGATIVE (NEGATIVE)
--- NOTE | 2023-03-20 15:13 | Diagnostic Imaging Report ---
PROCEDURE: CT head without contrast. TECHNIQUE: Multiple contiguous axial images were obtained through the brain without the use of intravenous contrast. Auto Exposure Controls were utilized during the CT exam to meet ALARA standards for radiation dose reduction. INDICATION: Dizziness, head pain, nausea. Compared with study 08/22/2019 FINDINGS: There is no hemorrhage, hydrocephalus, cerebral edema, mass, mass effect nor abnormal extra-axial collection. No cerebral edema. Orbits, sinuses and calvarium nonacute. There has been no change. IMPRESSION: Stable unremarkable CT head. Dictated by: Dictated on workstation # [id number]
[2023-03-20 15:30] LABS: BILIRUBIN,TOTAL 0.1 MG/DL (0.1-1.0); CALCIUM 9.4 MG/DL (8.5-10.1); CREATININE SERUM 0.87 MG/DL (0.60-1.30); POTASSIUM 3.6 MMOL/L (3.6-5.0); TOTAL PROTEIN 6.6 GM/DL (6.4-8.2)
[2023-03-20 15:44] LABS: BACTERIA,URINE NEGATIVE /HPF; SQUAMOUS EPITHELIAL CELL,UR RARE /HPF
[2023-03-20 16:28] VITALS: BP 105/67
== END 2023-03-20 16:28 | disposition home or self-care (01) ==
LOC: EDUNIT# 13:59 → ER 14:01
DX: R51.9 Headache, unspecified (principal); R42 Dizziness and giddiness; R11.0 Nausea; R25.9 Unspecified abnormal involuntary movements; G40.909 Epilepsy, unspecified, not intractable, without status epilepticus; F17.290 Nicotine dependence, other tobacco product, uncomplicated; Z79.899 Other long term (current) drug therapy; Z91.040 Latex allergy status
CPT/HCPCS: 36415; 70450; 80053; 81000; 84703; 85025